=== PATIENT | male | born 1950 | race Caucasian/White ===

== ENCOUNTER 2018-12-23 13:24 | Inpatient (IN) | payer MEDICARE, OTHER ==
[~2018-12-23] VITALS: Ht 175.3 cm; Wt 142.0 kg
--- OUTSIDE RECORDS SUMMARY | 2018-12-23 13:27 | XMS REPORT | Summary of Care ---
Author Author [facility] Address Unknown Phone Unavailable Encounter HQ Encntr_alisujit(FIN) [id number] Date(s): 02/04/17 - 03/05/17 [facility] Discharge Disposition: Home or Self Care Attending Physician: Juanpablo Ross MD Vital Signs No data available for this section Problem List Condition Effective Dates Status Health Status Informant Hypertension(Confirm Active ed) Knee Active replacement(Confirme d) Osteoarthritis(Confi Active rmed) Osteoporosis(Confirm Active ed) Pneumonia(Confirmed) Active Sleep Active apnea(Confirmed) Smoke(Confirmed) Active Allergies, Adverse Reactions, Alerts Substance Reaction Severity Status NKDA Active Medications No data available for this section Results No data available for this section Immunizations No data available for this section Procedures No data available for this section Social History No data available for this section Assessment and Plan No data available for this section
--- OUTSIDE RECORDS SUMMARY | 2018-12-23 13:27 | XMS REPORT | Summary of Care ---
Author Author [facility] [place] Organization [facility] [place] Address Unknown Phone Unavailable Encounter HQ [email or web address]_alisujit(FIN) [id number] Date(s): 08/27/16 - 08/27/16 [facility] [place] [address] [place] [phone] Discharge Disposition: Home or Self Care Attending Physician: Tom Luong MD Vital Signs No data available for [...]
--- OUTSIDE RECORDS SUMMARY | 2018-12-23 13:27 | XMS REPORT | Summary of Care ---
Author Author [facility] Address Unknown Phone Unavailable Encounter HQ Encntr_alisujit(FIN) [id number] Date(s): 03/06/17 - 04/04/17 [facility] Discharge Disposition: Home or Self Care Attending [...]
--- OUTSIDE RECORDS SUMMARY | 2018-12-23 13:27 | XMS REPORT | Clinical Summary ---
Author Author [facility] Address Unknown Phone Unavailable Care Team Providers Care Sort Worker Name Role Phone Simon Werner MD PCP Allergies No Known Allergies Medications End Date Status Medication Sig Dispensed Refills Start Date Active naproxen (NAPROSYN) 250 Take 250 mg 0 MG tablet by mouth 2 (two) times a day with meals. Active acetaminophen (TYLENOL) Take 500 mg 0 500 MG tablet by mouth every 6 (six) hours as needed for mild pain. Active Problems Not on file Social History Date Tobacco Use Types Packs/Day Years Used Current Every Day Smoker Cigarettes 1 45 Smokeless Tobacco: Never Used Tobacco Cessation: Ready to Quit: No; Counseling Given: No Comments: occasional cigar Alcohol Use Drinks/Week oz/Week Comments Yes 1 Standard 0.6 drinks or equivalent Sex Assigned at Date Recorded Not on file Industry Job Start Date Occupation Not on file Not on file Not on file Travel End Travel History Travel Start No recent travel history available. Last Filed Vital Signs Not on file Plan of Treatment Health Maintenance Due Date Last Done Comments COLON CANCER SCREENING 1999 SHINGLES VACCINES (#1) 1999 65+ PNEUMOCOCCAL VACCINE 2014 (1 of 2 - PCV13) PNEUMOCOCCAL 2014 POLYSACCHARIDE VACCINE AGE 65 AND OVER INFLUENZA VACCINE 05/26/2018 Results Not on fileafter 12/22/2017 Insurance Payer Benefit Subscriber ID Type Phone Address Plan / Group AETNA AETNA xxxxxxxxxx HMO HMO,POS,EP O, MC/EC MEDICARE MEDICARE xxxxxxxxxx Medicare [place], [place] PART A AND B Advance Directives Patient has advance care planning documents on file. For more information, al espitia contact: Justin Vicente [address] [place] [address]
--- OUTSIDE RECORDS SUMMARY | 2018-12-23 13:27 | XMS REPORT | Continuity of Care Document ---
Author Author [facility] Organization [facility] Address Unknown Phone Unavailable Problems Problem Status Onset Date Classification Date Reported Comments Source M25.519 - PAIN IN UNSPECIFIED SHOULDER Active 11/27/2016 Dennis Razo J44.9 - CHRONIC OBSTRUCTIVE PULMONARY Active 08/27/2016 [facility] [place] RIGHT SHOULDER IMPINGEMENT Active 01/31/2015 [facility] [place] RIGHT SHOULDER Active 01/31/2015 [facility] [place] Hypertension Active Problem 04/07/2017 [facility] [place] [place] [place] Knee replacement Active Problem 04/07/2017 [facility] [place] [place] [place] Osteoarthritis Active Problem 04/07/2017 [facility] [place] [place] [place] Osteoporosis Active Problem 04/07/2017 [facility] [place] [place] [place] Pneumonia Active Problem 04/07/2017 [facility] [place] [place] [place] Sleep apnea Active Problem 04/07/2017 [facility] [place] [place] [place] Smoke Active Problem 04/07/2017 [facility] [place] [place] [place] POST-TRAUMATIC OSTEOARTHRITIS, RIGHT LALI Active [facility] [place] POST-TRAUMATIC OSTEOARTHRITIS, LEFT SHOU Active [facility] [place] STIFFNESS OF LEFT SHOULDER, NOT ELSEWHER Active [facility] [place] Medications Medication Details Route Status Patient Instructions Ordering Provider Order Date Source Allergies, Adverse Reactions, Alerts Substance Category Reaction Severity Reaction type Status Date Reported Comments Source Immunizations Immunization Date Given Site Status Last Updated Comments Source Results Order Name Results Value Reference Range Date Interpretation Comments Source Shoulder 2+ Views Bilateral DX Shoulder 2+ Views Bilateral DX EXAM: XR BILATERAL SHOULDER 3 VIEWS DATE: 11/27/2016 at 1247 hours INDICATION: M25.519 Pain in unspecified shoulder COMPARISON: None available TECHNIQUE: AP views in internal and external rotation, and an axillary view of the bilateral shoulders FINDINGS: There is severe glenohumeral joint space narrowing bilaterally with associated bony remodeling, subchondral sclerosis and cystic change of the humeral head and glenoid. Large marginal osteophyte projects inferiorly from the left humeral head. No dislocation. No subacromial narrowing is identified on either side. IMPRESSION: Severe bilateral glenohumeral joint osteoarthrosis, with [id number] articulation. 11/27/2016 - - This report was dictated by a Coronary Care Unit Nurse/Fellow. I have personally reviewed the images as well as the Resident's interpretation and agree with the findings. Read by: Holly Murry MD Resident: Holly Murry MD Dictated Date/time: 11/27/16 14:06 Electronically Signed by: Amarilis Bear MD 11/27/16 17:36 FINAL REPORT [facility] Chest 2 views DX Chest 2 views DX EXAM: 2 view(s) of the chest. CLINICAL HX: J44.9 Chronic obstructive pulmonary disease, unspecified. Sleep apnea. . COMPARISON: Chest x-ray: 08/27/2010. FINDINGS: Support apparatus: None. Cardiac silhouette: Unremarkable. Eulalia: Unremarkable. Lobar consolidation: Negative. Pleural effusion: Negative. Pneumothorax: Negative. Other: Low lung volumes. Bones: Unremarkable. Other: None. IMPRESSION: 1. No acute cardiopulmonary process. 08/27/2016 - - Read by: Tex Medina MD Dictated Date/time: 08/27/16 14:58 Electronically Signed by: Tex Medina MD 08/27/16 14:59 FINAL REPORT RISHABH Haskins Vital Signs Vital Sign Value Date Comments Source Encounters Location Location Details Encounter Type Encounter Number Reason For Visit Attending Provider ADM Date DC Date Status Source [facility] [place] [facility] [id number] Tom Luong 08/27/2016 08/28/2016 RISHABH Andradea [facility] [place] [facility] [id number] Juanpablo Ross 11/27/2016 11/28/2016 [facility] [place] [facility] [id number] Juanpablo Ross 02/04/2017 03/06/2017 [facility] [id number] Juanpablo Ross 03/06/2017 04/05/2017 [facility] Jozef Procedures Procedure Code Date Perfomer Comments Source
--- OUTSIDE RECORDS SUMMARY | 2018-12-23 13:27 | XMS REPORT | Summary of Care ---
Author Author [facility] Outpatient Imaging [facility] Address Unknown Phone Unavailable Encounter HQ Encntr_alisujit(FIN) [id number] Date(s): 11/27/16 - 11/27/[address] [facility] Outpatient Imaging [facility] [address] [facility], [address] [place] [phone] Discharge Disposition: Home or Self Care Attending [...]
[2018-12-23] MEDS ORDERED: ASPIRIN 81 MG CHEW TAB PO ONE ×2 (13:45→17:15)
[2018-12-23 14:04] LABS: BASOPHILS % 0.5 % (0.0-1.0); EOSINOPHILS # (AUTO) 0.2 (0.0-0.4); EOSINOPHILS % 2.6 % (0.0-6.0); HEMOGLOBIN 16.3 g/dL (14.0-18.0); LYMPHOCYTES # (AUTO) 1.2 (1.0-3.2); LYMPHOCYTES % 20.2 % (18.0-39.1); MEAN CORPUSCULAR HEMOGLOBIN 32.7 pg (28-32); MEAN CORPUSCULAR HGB CONC 32.6 g/dL (31-35); MEAN CORPUSCULAR VOLUME 100.4 fL (81-99); MONOCYTES # (AUTO) 0.6 (0.2-0.8); MONOCYTES % 10.7 % (4.4-11.3); NEUTROPHILS # (AUTO) 3.7 (2.1-6.9); NEUTROPHILS % 65.5 % (38.7-80.0); PLATELET COUNT 204 x10e3/uL (140-360); RED BLOOD COUNT 4.98 x10e6/uL (4.3-5.7); RED CELL DISTRIBUTION WIDTH 13.6 % (11.7-14.4)
[2018-12-23 14:13] LABS: INR 0.83; PROTHROMBIN TIME 12.2 seconds (11.9-14.5)
[2018-12-23 14:14] LABS: PARTIAL THROMBOPLASTIN TIME 30.7 seconds (23.8-35.5)
[2018-12-23 14:21] LABS: ALANINE AMINOTRANSFERASE 22 IU/L (0-55); ALBUMIN 3.8 g/dL (3.5-5.0); ALBUMIN/GLOBULIN RATIO 1.2 (0.8-2.0); ALKALINE PHOSPHATASE 55 IU/L (40-150); BLOOD UREA NITROGEN 17 mg/dL (7-26); BUN/CREATININE RATIO 16 (6-25); CALCIUM 9.8 mg/dL (8.4-10.2); CARBON DIOXIDE 29 mmol/L (22-29); CHLORIDE 97 mmol/L (98-107); CREATINE KINASE 140 IU/L (30-200); CREATININE, SERUM 1.05 mg/dL (0.72-1.25); EST GLOMERULAR FILTRATION RATE > 60 ML/MIN (60-); GLUCOSE 122 mg/dL (74-118); SODIUM 137 mmol/L (136-145)
--- NOTE | 2018-12-23 15:01 | Diagnostic Imaging Report ---
EXAMINATION: CHEST SINGLE (NOT PORTABLE) INDICATION: Possible heart attack. COMPARISON: None FINDINGS: TUBES and LINES: None. LUNGS: Lungs are not well inflated. Mild patchy bibasilar opacities, likely atelectasis. No evidence of pulmonary edema or lobar pneumonia. PLEURA: No pleural effusion or pneumothorax. HEART AND MEDIASTINUM: The cardiomediastinal silhouette is unremarkable. BONES AND SOFT TISSUES: No acute osseous lesion. Soft tissues are unremarkable. UPPER ABDOMEN: No free air under the diaphragm. IMPRESSION: No acute radiographic abnormality. Low lung volumes with patchy bibasilar opacities, likely atelectasis. Signed by: Dr. Jesica Romero MD on 12/23/2018 2:57 PM
--- NOTE | 2018-12-23 16:00 | NUR ---
PATIENT TRANSPORTED TO ER ROOM 4. ASSUMED CARE AT THIS TIME. PATIENT CONNECTED TO BEDSIDE PLANT PROTECTION GUARD,NIBP,AND SPO2. NO SIGNS OF ACUTE DISTRESS NOTED AT THIS TIME.
[2018-12-23 16:35] LABS: BILIRUBIN,URINE NEGATIVE (NEGATIVE); CLARITY,URINE CLEAR (CLEAR); COLOR,URINE YELLOW (YELLOW); KETONES,URINE NEGATIVE (NEGATIVE); LEUKOCYTE ESTERASE ,URINE NEGATIVE (NEGATIVE); NITRITE,URINE NEGATIVE (NEGATIVE); PROTEIN,URINE DIPSTICK NEGATIVE (NEGATIVE); URINE UROBILINOGEN 0.2 mg/dL (0.2 - 1)
[2018-12-23 16:45] LABS: BACTERIA,URINE FEW /HPF; RBC,URINE 0-5 /HPF (0-5)
--- NOTE | 2018-12-23 16:45 | NUR ---
RYAN MONTANEZ AT BEDSIDE FOR PATIENT EVAL. REPEAT EKG ORDERED AT THIS TIME. NO SIGNS OF ACUTE DISTRESS NOTED AT THIS TIME.
[2018-12-23] MEDS ORDERED: ULTRAM50 MG PO (16:57)
[2018-12-23] MEDS ORDERED: HYDROCHLOROTHIA25 MG PO (16:57)
[2018-12-23] MEDS ORDERED: NAPROXEN250 MG PO (16:57)
[2018-12-23] MEDS ORDERED: PROAIR HFA INH8.5 GM INH (16:57)
[2018-12-23] MEDS ORDERED: TAMSULOSIN HCL0.4 MG PO (16:57)
[2018-12-23] MEDS ORDERED: FLECTOR1 EACH (16:57)
[2018-12-23] MEDS ORDERED: SODIUM CHLORIDE FLUSH 10 ML SYR INJ PRN (17:15)
[2018-12-23] MEDS ORDERED: ONDANSETRON HCL INJ 2MG/ML 2ML 2 MG/ML VIAL IV PRN (17:15)
--- NOTE | 2018-12-23 19:11 | NUR ---
VERBAL REPORT GIVEN TO EDDIE RAMIRES.
--- OUTSIDE RECORDS SUMMARY | 2018-12-23 19:56 | XMS REPORT | Clinical Summary ---
Author Author [facility] Address Unknown Phone Unavailable Care Team Providers Care Oracle Reports Developer Name Role Phone Simon Werner MD PCP [...] HMO,POS,EP O, MC/EC MEDICARE MEDICARE xxxxxxxxxx Medicare [place], [place] PART A AND B Advance Directives Patient has advance care planning documents on file. For more information, al espitia contact: Justin Vicente [address] [place] [address]
--- OUTSIDE RECORDS SUMMARY | 2018-12-23 19:56 | XMS REPORT ---
Author Author [facility] Address Unknown Phone Unavailable Care Team Providers Care Peripheral Equipment Operator Name Role Phone Opal JONES Unavailable Unavailable Problems This patient has no known problems. Allergies, Adverse Reactions, Alerts This patient has no known allergies or adverse reactions. Medications This patient has no known medications. Results Test Description Test Time Test Comments Text Results Atomic Results Result Comments CHEST SINGLE (NOT PORTABLE) 2018-12-23 14:55:00 [place] [address] Patient Name: UMESH CHAIDEZ MR #: [id number] : 1950 Age/Sex: 68/M Req #: [id number] Adm Physician: Ordered by: TARIK HUTCHINSON NP Report #: [id number] Location: ER Room/Bed: Procedure: [id number] DX/CHEST SINGLE (NOT PORTABLE) Exam Date: 12/23/18 Exam Time: 1420 REPORT STATUS: Signed EXAMINATION: CHEST SINGLE (NOT PORTABLE) INDICATION: Possible heart attack. COMPARISON: None FINDINGS: TUBES and LINES: None. LUNGS: Lungs are not well inflated. Mild patchy bibasilar opacities, likely atelectasis. No evidence of pulmonary edema or lobar pneumonia. PLEURA: No pleural effusion or pneumothorax. HEART AND MEDIASTINUM: The cardiomediastinal silhouette is unremarkable. BONES AND SOFT TISSUES: No acute osseous lesion. Soft tissues are unremarkable. UPPER ABDOMEN: No free air under the diaphragm. IMPRESSION: No acute radiographic abnormality. Low lung volumes with patchy bibasilar opacities, likely atelectasis. Signed by: Dr. Jonathan Orr MD on 12/23/2018 2:57 PM Dictated By: JONATHAN ORR MD [id number] Transcribed By: VINITA on 12/23/18 [id number] COPY TO: TARIK HUTCHINSON NP
--- NOTE | 2018-12-23 21:23 | NUR ---
TO ROOM TO PLACE ON PORTABLE TOW TRUCK DISPATCHER. PT CONVERTED TO AFLUTTER C HR 130'S. DR ROSARIO INFORMED. PT SITTING UP IN BED. NO DISTRESS NOTED.
--- NOTE | 2018-12-23 21:27 | NUR ---
AT BEDSIDE C PATIENT. PT AFLUTTER WITH HR 110'S. PT NOTED CONVERTING BACK TO SB WITH HR 56. DR ROSARIO INFORMED.
[2018-12-23] MEDS ORDERED: AMIODARONE HCL 150MG 100 ML ONE (21:38)
[2018-12-23] MEDS ORDERED: AMIODARONE HCL 150 MG/100 ML BAG IV ONE (22:00)
[2018-12-23] MEDS ORDERED: AMIODARONE 900MG 500 ML IV SCH (22:05)
[2018-12-23 23:06] LABS: CREATINE KINASE MB 1.2 ng/mL (0-5.0)
--- NOTE | 2018-12-24 01:03 | NUR ---
PT HR 43. TO ROOM, AMIODARONE HELD. PT NOTED SLEEPING AND HOLDING BREATH. PT AWAKENED. HR INCREASED TO 80-90'S. PT STATES THAT HAS SLEEP APNEA AND USES CPAP AT HOME. DR ROSARIO INFORMED. BIPAP ORDERED.
[2018-12-24] MEDS ORDERED: AMIODARONE 900MG 500 ML IV SCH (04:05)
--- NOTE | 2018-12-24 05:10 | NUR ---
PT HR INCREASED TO 120-130'S AT 0505. TO ROOM PT RESTING QUIETLY IN BED. NO DISTRESS NOTED. RESP EVEN AND UNLABORED ON BIPAP. DR ROSARIO INFORMED. ORDERED TO RESTART AMIODARONE DRIP. AMIODARONE RESTARTED AT THIS TIME.
--- NOTE | 2018-12-24 05:51 | NUR ---
TO ROOM TO DRAW BLOOD FOR AM LABS. HR NOTED DECREASING TO 48. AMIODARONE DRIP HELD. DR MARLENE LO MD ORDERED TO CONTINUE TO HOLD AMIODARONE DRIP.
[2018-12-24 06:11] LABS: BASOPHILS % 0.5 % (0.0-1.0); EOSINOPHILS # (AUTO) 0.2 (0.0-0.4); EOSINOPHILS % 3.3 % (0.0-6.0); HEMATOCRIT 48.2 % (38.2-49.6); HEMOGLOBIN 15.4 g/dL (14.0-18.0); LYMPHOCYTES # (AUTO) 1.4 (1.0-3.2); LYMPHOCYTES % 21.6 % (18.0-39.1); MEAN CORPUSCULAR HEMOGLOBIN 32.8 pg (28-32); MEAN CORPUSCULAR VOLUME 102.8 fL (81-99); MONOCYTES # (AUTO) 0.8 (0.2-0.8); MONOCYTES % 12.2 % (4.4-11.3); NEUTROPHILS # (AUTO) 3.9 (2.1-6.9); NEUTROPHILS % 62.1 % (38.7-80.0); PLATELET COUNT 156 x10e3/uL (140-360); RED BLOOD COUNT 4.69 x10e6/uL (4.3-5.7); RED CELL DISTRIBUTION WIDTH 13.7 % (11.7-14.4)
[2018-12-24 06:28] LABS: ANION GAP 11.1 mmol/L (8-16); BLOOD UREA NITROGEN 18 mg/dL (7-26); BUN/CREATININE RATIO 19 (6-25); CALCIUM 8.7 mg/dL (8.4-10.2); CARBON DIOXIDE 31 mmol/L (22-29); CHLORIDE 100 mmol/L (98-107); CREATININE, SERUM 0.96 mg/dL (0.72-1.25); EST GLOMERULAR FILTRATION RATE > 60 ML/MIN (60-); GLUCOSE 154 mg/dL (74-118); POTASSIUM 4.1 mmol/L (3.5-5.1); SODIUM 138 mmol/L (136-145)
[2018-12-24 06:30] LABS: INR 0.88; PARTIAL THROMBOPLASTIN TIME 30.8 seconds (23.8-35.5); PROTHROMBIN TIME 12.8 seconds (11.9-14.5)
[2018-12-24 06:31] LABS: CREATINE KINASE 107 IU/L (30-200)
[2018-12-24] MEDS ORDERED: DIGOXIN INJ 0.25 MG/ML 2 ML AMP IV ONE (07:00)
--- NOTE | 2018-12-24 07:00 | NUR ---
WALKING ROUNDS COMPLETED AND REPORT RECEIVED FROM KEYLA HO LVN TRAILER SECTIONS ASSEMBLER NURSE.
--- NOTE | 2018-12-24 08:50 | NUR ---
PT PLACED ON 3 L N/C, ASSISTED UP TO SIDE OF BED AND WITH MEAL TRAY. TOLERATING WELL AT THIS TIME, BREATHING EVEN/UNLABORED.
--- NOTE | 2018-12-24 10:40 | NUR ---
HOOP MAKER AT BEDSIDE AT THIS TIME.
--- NOTE | 2018-12-24 13:16 | NUR ---
Call rec'd from Dr. Ovalles, states he will follow up with pt during admission. No orders rec'd at this time.
--- NOTE | 2018-12-24 13:30 | NUR ---
Mya [facility] AT BEDSIDE AT THIS TIME, PENDING NEW ORDERS.
[2018-12-24 14:01] LABS: CHOL/HDL RATIO 4.4 (3.9-4.7)
[2018-12-24 14:28] LABS: THYROID STIMULATING HORMONE 1.607 uIU/mL (0.350-4.940)
--- NOTE | 2018-12-24 15:17 | NUR ---
Dr. Miki Carranza rounding at this time, updated on pt status & consults. In agreement for pt to go to Med/Tele at this time.
[2018-12-24] MEDS: DILTIAZEM HCL 30 MG TAB PO SCH ×2 (15:35→21:00)
--- NOTE | 2018-12-24 16:19 | Consultation ---
DATE OF CONSULTATION: 12/24/2018 REASON FOR CONSULTATION: AFib. CHIEF COMPLAINT: New-onset irregular heart beat. HISTORY OF PRESENT ILLNESS: This is a 68-year-old male with history of osteoarthritis, BPH, hypertension, and smoker. The patient presents to [facility] ER after seeing his primary care doctor, Dr. Navarro, yesterday for routine visit. EKG was done and the patient was noted in atrial flutter with fast ventricular rate. The patient was advised to go to the ER. The patient presented to the ER and was noted in atrial flutter. He was given amiodarone therapy and digoxin therapy. Subsequently, the patient has converted to normal sinus rhythm. Cardiology was consulted to evaluate the patient. The patient was seen in ER room 4 with family at bedside, reports yesterday as stated went to see his PCP, Dr. Navarro, for routine visit and was noted an irregular heart beat and was advised to go to the hospital for further evaluation. The patient denies any symptoms regarding any palpitations, any lightheadedness, dizziness, chest pain, or shortness of breath. 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 The patient denies any chest pain or shortness of breath. He states that he is feeling fine. Currently, the patient on tele, sinus william with heart rate in the upper 50s. PAST MEDICAL HISTORY: Osteoarthritis, smoker, BPH, and hypertension. PAST SURGICAL HISTORY: Bilateral knee replacements, bilateral cataracts, appendectomy, tonsillectomy, and right ankle surgery. SOCIAL HISTORY: He is . He is a retired [employer] officer. He is a smoker 1 to 2 packs for greater than 30 years. He reports social alcohol. FAMILY HISTORY: Reports mother at age 94 with a history of CABG. Father at age of 63 with history of CAD; however, from drowning at the age of 63. HOME MEDICATIONS: Include albuterol inhaler, hydrochlorothiazide 25 mg once a day, naproxen 250 mg as needed, Flomax 0.4 mg once a day, and tramadol 50 mg q.6 hours as needed. ALLERGIES: NO KNOWN ALLERGIES. REVIEW OF SYSTEMS: GENERAL: No acute distress. Obese. Denies any fevers, chills, and night sweats. SKIN: No rashes or sores reported. HEENT: Denies any vision changes, any blurred vision, double vision, any earaches, tinnitus, vertigo, any epistaxis, any sore throat, swollen neck. HEART: Denies any chest pain, any palpitations, any orthopnea, or PND. Positive, however, for dyspnea on exertion. RESPIRATORY: Denies any shortness of breath. Denies any wheezing, coughing, or hemoptysis. GI: Reports good appetite. Denies any nausea, vomiting, diarrhea, constipation, any bleeding, hematemesis, any melena, or hematochezia. URINARY: Positive for frequency and urgency. Denies any dysuria or hematuria. VASCULAR: Positive for lower extremity edema. Denies any claudication. MUSCULOSKELETAL: Positive for generalized joint pains. NEUROLOGIC: Denies any numbness, tingling, tremors, weakness, paralysis, blackout, or seizures. HEMATOLOGIC: Denies any anemia or easy bruising. ENDOCRINE: Denies any heat or cold intolerance, any polyuria, polydipsia, or polyphagia. PHYSICAL EXAMINATION: VITAL SIGNS: Height 69 inches, weight 315 pounds, BMI 46.5. Temperature 97.7, pulse 70, respiratory rate 22, blood pressure 113/76, and pulse ox 99% on 2 L nasal cannula. GENERAL: Appears stated age, reliable informant. SKIN: No rashes or bruises noted. Chronic venous changes noted in the lower extremities. HEENT: Normocephalic. Pupils equal and reactive. Extraocular movements are intact. Bilateral eyelid xanthomas noted. NECK: Trachea midline. No thyromegaly noted. No JVD. HEART: Regular rate and rhythm. Soft systolic murmur heard in the right upper sternal border. PMI about fourth and fifth intercostal space. LUNGS: Bilateral breath sounds clear to auscultation; however, decreased airway entry and exit throughout. ABDOMEN: Soft, nontender, nondistended. No organomegaly noted, however, very obese. MUSCULOSKELETAL: Good muscle strength throughout. Positive lower extremity swelling with some chronic venous changes noted in the lower extremities. VASCULAR: +2 bilateral radial pulses, +1 DP/PT pulses bilaterally. NEUROLOGIC: Cranial nerves II through XII seem intact. LABORATORY DATA: Sodium 138, potassium 4.1, chloride 100, bicarb 31, BUN 18, creatinine 0.9. Troponins 0.003, next is 0.002, next is less than 0.05. BNP 48. Initial EKG; atrial flutter, heart rate of 140s. Next EKG noted with atrial flutter and heart rate 75. ASSESSMENT: 1. New-onset atrial flutter. 2. Hypertension. 3. Smoker. 4. Morbid obesity. PLAN: 1. The patient presents to [facility] after noted atrial flutter on EKG. He is now cardioverted after receiving the amiodarone therapy and digoxin therapy. YOVANNY score of 2. Anticoagulation therapy was discussed at length with the patient and is agreeable to therapy. We will continue rate control therapy with diltiazem. We will avoid beta-aime therapy given the patient's long history of smoking and very poor airway entry and exit on exam. 2. Continue telemonitoring. 3. We will obtain an echo to evaluate heart function and structure. 4. We will go ahead and obtain TSH and lipid panel. 5. Further recommendations to follow. Thank you very much for this consult. We will monitor the patient and adjust cardiac therapy as clinical course dictates. Dictated by Dawson Prince NP SEEN AND EVALUATED [facility] FOLLOW UP WITH EP FOLLOW UP WITH HIS WAREHOUSE DISTRIBUTION MANAGER Alonso Yuan MD DC/KADEEM /[id number] MARS
--- NOTE | 2018-12-24 16:53 | NUR ---
Receive patient from ER via bed. AAOX4 to time, person, place, situation. Respirations even and unlabored. O2 3L NC. Tele #[phone] SR 69. Denies pain. Oriented patient to room. Instructed to use call light for assistance. Voiced understanding. Will continue to monitor.
[2018-12-24 17:00] VITALS: BP 135/74
[2018-12-24 17:16] VITALS: BP 135/74
[2018-12-24 17:23] VITALS: BP 135/74
[2018-12-24] MEDS: APIXABAN 5 MG TABLET PO SCH (18:21)
[2018-12-24] MEDS ORDERED: NAPROXEN 250 MG TAB PO PRN ×2 (18:45→19:15)
[2018-12-24] MEDS ORDERED: ALBUTEROL SULFATE HFA 8GM INHALATION AEROSOL INH PRN (18:45)
--- NOTE | 2018-12-24 18:45 | NUR ---
Resting in bed, family at bedside. No s/s of acute distress noted. Report to be given to oncoming nurse.
[2018-12-24 20:00] VITALS: BP 126/58
[2018-12-24 20:43] VITALS: BP 126/58
--- NOTE | 2018-12-24 23:41 | NUR ---
TELEMETRY CALL AND STATED THAT THE PATIENT'S HEART RATE IS 36; UPON ASSESSMENT, HE WAS ASLEEP. HE'S EASY TO AROUSE, NO RESPIRATORY DISTRESS OBSERVED AND HE DENIES PAIN/DIZZINESS. CALL LIGHT WITHIN EASY REACH, INSTRUCTED TO CALL FOR ASSISTANCE UPON GETTING OUT OF THE RECLINER. PATIENT'S HEART RATE NOW 67.
[2018-12-25] VITALS (8 sets, daily range): BP systolic 123–159; BP diastolic 58–72
--- NOTE | 2018-12-25 01:08 | NUR ---
PATIENT ASLEEP WITH C-PAP ON, NO RESPIRATORY DISTRESS OBSERVED AND HE DENIES PAIN. BED ALARM ON, CALL LIGHT WITHIN EASY REACH.
--- NOTE | 2018-12-25 03:21 | NUR ---
PATIENT ASSISTED TO THE RESTROOM, HE'S BACK IN THE ROOM SITTING UP IN THE CHAIR WITHOUT RESPIRATORY DISTRESS.
[2018-12-25] MEDS: TAMSULOSIN HCL 0.4 MG CAP PO SCH (09:15)
[2018-12-25] MEDS: DILTIAZEM HCL 30 MG TAB PO SCH ×3 (09:15→21:25)
[2018-12-25] MEDS: TRAMADOL HCL 50 MG TAB PO PRN (09:49)
[2018-12-25] MEDS: APIXABAN 5 MG TABLET PO SCH ×2 (10:19→16:39)
--- NOTE | 2018-12-25 18:43 | Progress Note ---
DATE: Internal Medicine Progress Note SUBJECTIVE: The patient is having a lot of shortness of breath. He can barely walk due to his shortness of breath. He has hypoxemia when he walks, so he needs oxygen. We are going to consult Dr. Hickman for Pulmonary. He has sleep apnea also. He is a heavy smoker. He has history of COPD. OBJECTIVE: VITAL SIGNS: Blood pressure 135/62, temperature 96.4, heart rate 60 per minute, respiratory rate 18 per minute, and oxygen saturation 92%. HEART: Showed irregularly irregular heart rate LUNGS: Clear bilaterally. ABDOMEN: Soft, severely distended. LABORATORY DATA: BMP; sodium 138, potassium 4.1, chloride 100, CO2 of 31, BUN 18, creatinine 0.96, and glucose 154. CBC; white blood count 6.31, hemoglobin 15.4, hematocrit 48.2, and platelet count 156,000. PT 12.8, INR 0.88, and PTT 30.8. AST 19, ALT 22, total bilirubin 0.5, alkaline phosphatase 55. FINAL IMPRESSION: 1. Severe chronic obstructive pulmonary disease exacerbation. 2. Paroxysmal atrial fibrillation. 3. Respiratory failure, which is acute. 4. Morbid obesity. 5. Most likely sleep apnea. 6. Hypertension. PLAN OF TREATMENT: We are going to continue the oxygen and continue the BiPAP machine. We are going to get a Pulmonary consult with Dr. Hickman. We are going to continue Eliquis 5 mg twice a day, Cardizem 30 mg three times a day, albuterol q.4 hours, tramadol 50 mg q.6 hours as needed, and Zofran 4 mg IV q.4 hours as needed. I discussed the case with family at least for 45 to 50 minutes. MD MODESTA Aleman/KADEEM /[id number]
--- NOTE | 2018-12-25 20:19 | Consultation ---
DATE OF CONSULTATION: Pulmonary Critical Care Consultation HISTORY OF PRESENT ILLNESS: The patient is a 68-year-old man. He has a history of obesity-hypoventilation syndrome and obstructive sleep apnea. He also has a history of degenerative arthritis. He went to see his regular physician for arthritis medicine when they noticed a rapid atrial fibrillation. He was sent to the ER. He was given medications and the rate was controlled. He was seen in consultation per Cardiology. After treatment of his acute cardiac problems, he still complained of some dyspnea. His saturation decreased to 86% with walking. PAST MEDICAL HISTORY: 1. Obstructive sleep apnea. The patient uses BiPAP at night at home. 2. Obesity-hypoventilation syndrome. 3. New onset atrial fibrillation. 4. Hypertension. SOCIAL HISTORY: The patient quit smoking about three days ago. He is not an active drinker. FAMILY HISTORY: Noncontributory. REVIEW OF SYSTEMS: There is no headache. He has no fever. He has no neck pain. He is not complaining of any chest pain. He does have some dyspnea. He has no cough. He has no abdominal pain. He is not complaining of any nausea or vomiting. He does have some chronic leg swelling. PHYSICAL EXAMINATION: VITAL SIGNS: The patient is afebrile. Blood pressure is 125/67 and pulse is 60. Saturation is 92% on 3 L. HEENT: Shows no facial swelling or erythema. Nasal mucosa is normal. The oropharynx is normal. LYMPHATIC: Shows no submandibular, cervical, supraclavicular adenopathy. CARDIAC: Reveals regular rate and rhythm with normal S1 and S2. There are no murmurs or rubs. LUNGS: Auscultation of lungs reveals rhonchorous breath sounds bilaterally. There is no wheezing. ABDOMEN: Soft, nontender. There is no rebound or guarding. EXTREMITIES: Show chronic leg edema in the lower extremities. LABORATORY DATA: White blood cell count is 6.3 with a hemoglobin of 15.4 and platelet count of 156. BUN to creatinine ratio is 18 to 0.96. Other electrolytes are within normal limits. Urinalysis is normal. RADIOGRAPHIC DATA: Chest x-ray shows no acute disease. There are some low lung volumes. IMPRESSION: 1. Obesity-hypoventilation syndrome. 2. Obstructive sleep apnea. 3. Chronic obstructive pulmonary disease. 4. New onset atrial fibrillation. 5. Hypertension. 6. Morbid obesity. PLAN: 1. The patient will continue BiPAP at home. 2. He will need oxygen at home as well. 3. Smoking cessation. 4. Medically supervised weight loss. 5. Continue rescue inhaler as needed. 6. Await completion of Cardiology evaluation. MD ARELI Stewart/KADEEM /[id number]
--- NOTE | 2018-12-25 21:15 | NUR ---
NO RESPIRATORY DISTRESS OBSERVED, FAMILY MEMBERS VISITING WITH THE PATIENT AT THIS TIME. CALL LIGHT WITHIN EASY REACH, PATIENT INSTRUCTED TO CALL FOR ASSISTANCE NEEDED.
--- NOTE | 2018-12-25 22:53 | NUR ---
PATIENT ASSISTED WITH ADLS, SHE'S IN BED WITH HER C-PAP ON. NO RESPIRATORY DISTRESS OBSERVED, CALL LIGHT WITHIN EASY REACH. Addendum: 12/25/18 at 2319 by Cecily Benavidez RN WRONG PATIENT.
--- NOTE | 2018-12-25 23:20 | NUR ---
BI-PAP APPLIED ON THE PATIENT, NO DISTRESS OBSERVED, HE DENIES PAIN. PATIENT'S SON IS AT THE BEDSIDE.
[2018-12-26 00:35] VITALS: BP 133/70
[2018-12-26] MEDS: TRAMADOL HCL 50 MG TAB PO PRN ×2 (00:58→07:58)
--- NOTE | 2018-12-26 00:58 | NUR ---
PATIENT WOKE UP FROM SLEEP AND C/O SEVERE PAIN TO THE SHOULDERS. MEDICATED WITH TRAMADOL ORDERED, THE MEDICATION WAS ADMINISTERED PRIOR TO THE PATIENT COMING FROM THE RESTROOM. HE'S NOW SITTING AT THE SIDE OF THE BED WITH HIS SON AT THE BEDSIDE. CALL LIGHT WITHIN EASY REACH, INSTRUCTED TO CALL FOR ASSISTANCE NEEDED.
--- NOTE | 2018-12-26 03:40 | NUR ---
PATIENT ASSISTED TO THE REST ROOM, HE'S NOW BACK IN BED WITH BI-PAP ON. NO PAIN VOICED, CALL LIGHT WITHIN EASY REACH.
[2018-12-26 05:13] VITALS: BP 115/58
[2018-12-26 07:45] VITALS: BP 121/68
[2018-12-26] MEDS: TAMSULOSIN HCL 0.4 MG CAP PO SCH (07:57)
[2018-12-26] MEDS: DILTIAZEM HCL 30 MG TAB PO SCH ×2 (07:57→15:47)
[2018-12-26] MEDS: APIXABAN 5 MG TABLET PO SCH ×2 (07:57→15:53)
[2018-12-26 09:38] VITALS: BP 121/68
--- NOTE | 2018-12-26 10:28 | NUR ---
Rec'd order for home oxygen and pt meets criteria. Placed RX on front of chart early this morning for Dr. Pickard to sign and discussed with nurse. Dr. Pickard made rounds since, and did not sign RX. CM called him and notified him the RX needs to be signed for the home oxygen. He will try to sign later.
--- NOTE | 2018-12-26 12:34 | NUR ---
OK TO D/C HOME PER DR. WALKER AND DR. MUHAMMAD. PT STATES SHE HAS APPT ON THURSDAY (TOMORROW) WITH DR. LUIS. CASE MANAGEMENT SETTING UP HOME O2. AWAITING DR. MANJLUA NELSON.
--- NOTE | 2018-12-26 13:04 | NUR ---
Spoke to Adam with [facility], and they will be able to deliver the oxygen today. Faxed order and clinical as requested. CECELIA met with Dr. Pickard to update him. He stated pt can dc home once oxygen delivered. [facility] office [phone] fax [phone] Liaison: Adam [phone]
[2018-12-26 13:06] VITALS: BP 134/63
--- NOTE | 2018-12-26 13:47 | Progress Note ---
DATE: Pulmonary Progress Note SUBJECTIVE: The patient feels better. He has less dyspnea. He is asking to go home. OBJECTIVE: VITAL SIGNS: The blood pressure is 121/68 and the temperature is 96. Respiratory rate is 18. Saturation is 98% on 3 L. HEENT: Shows no facial swelling or erythema. CARDIAC: Reveals a regular rate and rhythm with a normal S1 and S2. LUNGS: Auscultation of lungs reveals rhonchorous breath sounds bilaterally. There is no wheezing. ABDOMEN: Soft and nontender. There is no rebound or guarding. EXTREMITIES: Show no leg edema or calf tenderness. There is no cyanosis or clubbing. IMPRESSION: 1. Obesity hypoventilation syndrome. 2. Chronic obstructive pulmonary disease. 3. Obstructive sleep apnea. 4. Atrial fibrillation. 5. Hypertension. 6. Morbid obesity. PLAN: 1. The patient will need to continue BiPAP at home. 2. Arrange for home oxygen. 3. Smoking cessation. 4. Rescue inhaler as needed. 5. Follow up with Pulmonology in 1 to 2 weeks. MD ARELI Stewart/KADEEM /[id number]
[2018-12-26] MEDS ORDERED: SPIRIVA18 MCG INH (14:05)
[2018-12-26] MEDS ORDERED: CARDIZEM60 MG PO (14:05)
--- NOTE | 2018-12-26 14:13 | NUR ---
Patient has family support from his daughter. Patient signed ALOC and IMM both signed placed in chart. Patient received copies of both.
--- NOTE | 2018-12-26 14:13 | NUR ---
Notified [facility] that the fax went through and requested delivery be expedited. Choice letter was signed.
--- NOTE | 2018-12-26 14:13 | NUR ---
Notified [facility] that the fax continues to say "busy". Have tried multiple fax machines in the hospital and 2 different fax numbers: [phone],
--- NOTE | 2018-12-26 14:49 | NUR ---
JESSICA WITH [facility] HAS REC'D ALL CLINICAL. OXYGEN WILL BE DELIVERED TODAY.
--- NOTE | 2018-12-26 14:53 | Progress Note ---
DATE: Internal Medicine Progress Note SUBJECTIVE: The patient is anxious to go home. He has severe hypoxemia when walking. I explained the patient that he does need oxygen at home 24 hours a day. He has a severe COPD. He still smokes. The patient is unrealistic about the expectations. 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 He does have a CPAP machine at night. PHYSICAL EXAMINATION: VITAL SIGNS: Blood pressure 120/68, temperature 96.3, heart rate 50 per minute, respiratory rate 18 per minute, oxygen saturation 98%. HEART: Showed regular rhythm. No murmur or added sound. LUNGS: Clear bilaterally with significantly decreased, minimal wheezing. ABDOMEN: Soft and nondistended. LABORATORY DATA: On the BMP, sodium 138, potassium 4.1, chloride 100, CO2 31, BUN 18, creatinine 0.86, glucose 154. CBC, white count 6.31, hemoglobin 15.4, hematocrit 48.2, and platelet count 156,000. PT 12.8, INR 0.88, PTT 30.8. AST 19, ALT 22, total bilirubin 0.5, alkaline phosphatase of 55. IMPRESSION: 1. Chronic obstructive pulmonary disease exacerbation. 2. Paroxysmal atrial fibrillation. 3. Acute respiratory failure secondary to chronic obstructive pulmonary disease exacerbation and sleep apnea. 4. Morbid obesity. 5. Sleep apnea. 6. Essential hypertension. PLAN OF TREATMENT: Continue BiPAP at night. Continue with oxygen during the daytime. Continue Eliquis 5 mg twice a day, Cardizem 30 mg 3 times a day, albuterol q.4 hours as needed for shortness of breath, tramadol 50 mg q.6 hours, Flomax 0.4 mg daily. I am going to start him on Spiriva also 1 inhalation daily. Tentative discharge tomorrow will resume the care tomorrow. MD MODESTA Aleman/MODL /[id number]
[2018-12-26 16:25] VITALS: BP 128/62
--- NOTE | 2018-12-26 16:58 | NUR ---
Removed IV from right AC. Pressure dressing applied.
--- NOTE | 2018-12-26 17:04 | NUR ---
Patient discharged from facility to home. [facility] was delivering home oxygen and was waiting outside for patient and was going to follow to the house. Reviewed all discharge paperwork, follow up appts and RX's given. Detailed instructions were given to the daughter. No s/s of distress noted
[2018-12-27] MEDS ORDERED: TIOTROPIUM 18 MCG INH POWDER INH SCH (06:00)
== END 2018-12-26 17:07 | disposition home health service (06) | DRG 308 ==
LOC: ER 13:24 → ERHOLD 19:54 → OBSVTOIN 12-24 00:37 → MED/SURG2 12-24 16:54
DX: I48.92 Unspecified atrial flutter (principal); J96.01 Acute respiratory failure with hypoxia; J44.1 Chronic obstructive pulmonary disease with (acute) exacerbation; Z68.42 Body mass index [BMI] 45.0-49.9, adult; E66.2 Morbid (severe) obesity with alveolar hypoventilation; I48.0 Paroxysmal atrial fibrillation; E66.01 Morbid (severe) obesity due to excess calories; E87.6 Hypokalemia; Z99.81 Dependence on supplemental oxygen; J44.9 Chronic obstructive pulmonary disease, unspecified; G47.33 Obstructive sleep apnea (adult) (pediatric); F17.210 Nicotine dependence, cigarettes, uncomplicated; N40.0 Benign prostatic hyperplasia without lower urinary tract symptoms; M19.90 Unspecified osteoarthritis, unspecified site
CPT/HCPCS: 36415; 71045; 80048; 80053; 80061; 81001; 82550; 82553; 82948; 83880; 84443; 84484; 85025; 85610; 85730; 93005; 93306; 94660; 99284; G0378